=== PATIENT | female | born 1960 | race Two or more races ===

== ENCOUNTER 2017-10-17 11:19 | Outpatient (CLI) | payer OTHER ==
[~2017-10-17 11:19] MED LIST: CATAFLAM50 MG; QVAR7.3 G1; RELAGESIC TABL1 EACH; SYNTHROID88 MCG
== END 2017-10-17 11:46 | disposition home or self-care (01) ==
LOC: MAMO-SONO 11:19
DX: N60.11 Diffuse cystic mastopathy of right breast (principal)

== ENCOUNTER → 2017-10-24 | Outpatient (CLI) | payer OTHER | END | disposition home or self-care (01) | LOC: NUCLEAR 12:49 | DX: M81.0 Age-related osteoporosis without current pathological fracture (principal) ==

== ENCOUNTER 2019-02-21 21:20 | Emergency (ER) | payer OTHER ==
[~2019-02-21] VITALS: Ht 160 cm; Wt 60.8 kg
[2019-02-21] MEDS ORDERED: SYNTHROID50 MCG (21:36)
[2019-02-21] MEDS ORDERED: NAPR500T14 (21:36)
[2019-02-21] MEDS ORDERED: METFORMIN HCL500 MG (21:36)
[2019-02-21] MEDS ORDERED: NABUMETONE750 MG (21:37)
[2019-02-21] MEDS ORDERED: ECOTRIN81 MG (21:38)
[2019-02-21] MEDS ORDERED: PREVACID30 MG (21:38)
== END 2019-02-21 23:50 | disposition home or self-care (01) ==
LOC: ER 21:20
DX: G44.209 Tension-type headache, unspecified, not intractable (principal); M54.2 Cervicalgia

== ENCOUNTER 2019-07-17 09:21 | Outpatient (CLI) | payer OTHER ==
[~2019-07-17 09:21] MED LIST changes: +ECOTRIN81 MG; +METFORMIN HCL500 MG; +NABUMETONE750 MG; +NAPR500T14; +PREVACID30 MG; +SYNTHROID50 MCG
== END 2019-07-17 10:00 | disposition home or self-care (01) ==
LOC: MRI 09:21
DX: Q28.3 Other malformations of cerebral vessels (principal)
CPT/HCPCS: 70553; A9575

== ENCOUNTER 2019-11-27 11:17 | Outpatient (CLI) | payer OTHER | END 2019-11-27 12:49 | disposition home or self-care (01) | LOC: MAMO-SONO 11:17 | PROVIDERS: ATTEND Internal Medicine | DX: Z12.31 Encounter for screening mammogram for malignant neoplasm of breast (principal); C50.912 Malignant neoplasm of unspecified site of left female breast ==

== ENCOUNTER 2020-01-08 10:04 | Outpatient (CLI) | payer OTHER | END 2020-01-08 10:16 | disposition home or self-care (01) | LOC: TOM 10:04 | PROVIDERS: ATTEND Obstetrics & Gynecology | DX: R10.2 Pelvic and perineal pain (principal) ==

== ENCOUNTER 2023-05-08 09:34 | Outpatient (CLI) | payer OTHER | END 2023-05-08 09:41 | disposition home or self-care (01) | LOC: SONOGRAMA 09:34 | PROVIDERS: ATTEND Internal Medicine Gastroenterology | DX: R10.9 Unspecified abdominal pain (principal) ==

== ENCOUNTER 2023-06-20 09:21 | Outpatient (CLI) | payer OTHER | END 2023-06-20 09:28 | disposition home or self-care (01) | LOC: TOM 09:21 | PROVIDERS: ATTEND Internal Medicine Gastroenterology | DX: R10.9 Unspecified abdominal pain (principal); E07.9 Disorder of thyroid, unspecified; K59.00 Constipation, unspecified; E11.9 Type 2 diabetes mellitus without complications ==